=== PATIENT | female | born 1930 | race Hispanic/Latino ===

== ENCOUNTER 2018-05-04 06:35 | Day surgery (SDC) | payer MEDICARE, BC ==
[2018-05-04] MEDS ORDERED: Propofol 10 mg/ml Inj (20 ML) ONE (08:40)
[2018-05-04] MEDS ORDERED: Lidocaine Hydrochloride 5 ML INJ ONE (08:40)
[2018-05-04] MEDS ORDERED: Lactated Ringer's 1,000 ML IV ONE (08:40)
[2018-05-04] MEDS ORDERED: ePHEDrine 50 mg/ml Inj ONE (08:40)
--- NOTE | 2018-05-04 08:40 | CP.SDSHP ---
Same Day Surgery H & P - History Proposed Procedure: colonosocpy Pre-Op Diagnosis: rectal bleed - Previous Medical/Surgical History Cardiac: Hypertension Misc: Anemia - Allergies Allergies: Allergies Penicillins Allergy (Verified 05/04/18 07:03) RASH - Physical Exam Vital Signs: Vital Signs 05/04/18 07:05 Temperature 97.2 F L Pulse Rate 78 Respiratory 19 Rate Blood Pressure 123/68 O2 Sat by Pulse 97 Oximetry Mental Status: Alert & Oriented x3 Neuro: WNL Heart: WNL Lungs: WNL GI: WNL - {Optional Preform as Required} Abdomen: WNL - Impression Impression: rect bleed Pt. Evaluated Today:Candidate for Anesthesia & Procedure: Yes - Date & Time Date: 05/04/18 Time: 08:25 Short Stay Discharge - Short Stay Discharge Admitting Diagnosis/Reason for Visit: RECTAL BLEED Disposition: HOME/ ROUTINE
[2018-05-04 12:49] VITALS: BP 126/62; PULSE 77; TEMP 97
[2018-05-04 12:50] VITALS: RESP 16; O2SAT 99
== END 2018-05-04 10:25 | disposition home or self-care (01) ==
LOC: C.ENDO 06:35
PROVIDERS: ATTEND Internal Medicine Gastroenterology
DX: K62.5 Hemorrhage of anus and rectum (principal); K57.30 Diverticulosis of large intestine without perforation or abscess without bleeding
CPT/HCPCS: 45378; J2704; J7120